=== PATIENT | female | born 1945 | race Caucasian/White ===

== ENCOUNTER 2024-11-24 14:34 | Outpatient (AMB) | payer MEDICARE, SELFPAY ==
--- NOTE | 2024-11-24 14:36 | A.OFFVIS_ITS ---
Vital Signs 11/24/24 14:39 Height 5 ft 3 in Weight 151 lb BMI 26.7 BP 124/70 Blood Pressure Location Rt brachial Position Sitting Pulse 90 Pulse Source Pulse Oximeter Pulse Oximetry (%) 99 Oxygen Delivery Method Room Air Intake Visit Reasons: [id number] Intake Note: Patient referred from [facility] for tremors Allergies No Known Allergies Allergy (Verified 11/24/24 14:43) Medication List - Last Reviewed 11/24/24 by CRYSTAL Wilde amlodipine-benazepril 10-40 mg 1 cap PO DAILY levothyroxine 75 mcg PO DAILY omeprazole 40 mg PO DAILY oxybutynin chloride ER 15 mg PO DAILY primidone mg PO rosuvastatin 10 mg PO BEDTIME HPI Comments Details: 79y/o female comes for further management of neuropathy and tremors she was seeing Dr. Alejandro who retired recently and is looking for continued care. Tremors- started about 4 years ago in her hands with action, posture. she is on primidone which is helping her. she still has trouble with activities that needs fine motor coordination. she is able to use utensils , eat and drink without problem. she feels embarrassed in social situations. she was diagnosed with neuropathy in 2005 - her main symptoms were parasthesias in toes worse at night . she also has numbness in her feet. the symptoms are manageable . she has EMG at that time. she also has balance issues due to numbness. The discomfort in her feet are better now. she has 1 fall a year. [facility] Medical History (Updated 11/24/24 @ 15:04 by Chrissie Nolasco MD) Gait abnormality Unsteady gait Tremor of both hands Primary insomnia Prediabetes Peripheral neuropathy Osteoporosis Osteoarthritis of back Insomnia Hypothyroidism Hyperlipidemia HTN (hypertension) GERD (gastroesophageal reflux disease) Essential tremor Colon polyp Allergic rhinitis Surgical History Hx of cholecystectomy Hx of appendectomy H/O tubal ligation Family History Mother FH: heart attack Father FH: heart attack Brother Afib HTN (hypertension) Social History Alcohol intake: former Patient Tobacco Use Status: Former Tobacco user Physical Exam Vital Signs: Last Vital Signs Pulse 90 11/24/24 14:39 Pulse Ox 99 11/24/24 14:39 Oxygen Delivery Method Room Air 11/24/24 14:39 BMI result Body Mass Index 26.7 Const General: cooperative, healthy appearing, comfortable and no acute distress Nutritional Appearance: average body habitus and well nourished Orientation/consciousness: patient oriented x3 Eyes Pupils: Equal, round and reactive pupils present Neuro Other: very mild postural tremors in hands General: patient oriented x3, moves all extremities and no focal motor deficits Cranial nerves: Yes Facial sensation intact/muscles of mastication intact, Yes Equal, round and reactive pupils present, Yes Bilaterally intact EOM present, Yes Nystagmus not present, Yes Normal facial strength present, Yes Midline tongue present, Yes Symmetric palate elevation present and Yes Ability to bilaterally elevate shoulders present Cognition (Neuro): normal cognition Gait exam (Neuro): Antalgic gait present Motor exam (neuro): 5/5 motor strength present throughout and Normal motor muscle tone present throughout Deep tendon reflexes (DTR's): Right triceps reflex intensity grade: 2+, Left triceps reflex intensity grade: 2+, Rt Biceps (C5, C6): 2+, Left biceps reflex intensity grade: 2+, Right brachioradialis reflex intensity grade: 2+, Left brachioradialis reflex intensity grade: 2+, Right patellar reflex intensity grade: 3+ and Left patellar reflex intensity grade: 3+ Coordination: [id number] test normal Assessment & Plan Assessment & Plan (1) Peripheral neuropathy: Code(s): G62.9 - Polyneuropathy, unspecified Category: Medical Qualifiers: Peripheral neuropathy type: polyneuropathy, unspecified Qualified Code(s): G62.9 - Polyneuropathy, unspecified (2) Tremor of both hands: Code(s): R25.1 - Tremor, unspecified Category: Medical (3) Gait abnormality: Code(s): R26.9 - Unspecified abnormalities of gait and mobility Category: Medical Plan Declines repeat EMG continue duloxetine 60mg bid change primidone 250mg 1/2 tab bid PT for gait Orders: Orders PT Evaluation and Treatment Today R26.9 - Unspecified abnormalities of gait and mobility Medications: New primidone 125 mg (1/2 x 250 mg) PO BID 30 tabs 6RF duloxetine 60 mg PO BID 60 caps 6RF Coding Level of Care Code New Pt Level 4 (86295) Complex EM visit Add On G2211 Diagnoses Peripheral polyneuropathy G62.9 Peripheral neuropathy type: polyneuropathy, unspecified Tremor of both hands R25.1 Gait abnormality R26.9
[2024-11-24 14:39] VITALS: BP 124/70; PULSE 90; O2SAT 99; BMI 26.7
--- OUTSIDE RECORDS SUMMARY | 2024-11-24 17:12 | XMS_ITS | Clinical Summary ---
Author Organization [facility] ity Address [address] [place] [address] Care Team Providers Care Chute Builder Name Role Phone Unavailable Primary Care Provider Unavailabl e Social History Tobacco Use Types Packs/Day Years Used Date Smoking Tobacco: Never Assessed Comments Unknown Sex and Gender Information Value Date Recorded Sex Assigned at Not on file Legal Sex Female 9:05 PM EST Gender Identity Not on file Sexual Orientation Not on file Plan of Treatment Health Maintenance Due Date Last Done Comments DTaP,Tdap,and Td Vaccines (1 - Tdap) 1964 Pneumococcal Vaccine: 50+ Ye ars (1 of 1 - PCV) 1995 Zoster Vaccines (1 of 2) 1995 RSV Immunization Adult Patie nts (1 - 1-dose 75+ series) 2020 COVID-19 Vaccine ( - 2023-2 5 season) 2024 Influenza Vaccine (Season Ended) 2025 HIB Vaccines Aged Out No longer eligi ble based on patient's age to complete this topic HPV Vaccines Aged Out No longer eligi ble based on patient's age to complete this topic Hepatitis A Vaccines Aged Out No long er eligible based on patient's age to complete this topic Hepatitis B Vaccines Aged Out No long er eligible based on patient's age to complete this topic IPV Vaccines Aged Out No longer eligi ble based on patient's age to complete this topic MMR Vaccines Aged Out No longer eligi ble based on patient's age to complete this topic Meningococcal ACWY Vaccine Aged Out N o longer eligible based on patient's age to complete this topic Meningococcal B Vaccine Aged Out No l onger eligible based on patient's age to complete this topic RSV Immunization Patients Un feliciano 20 months Aged Out No longer eligible b ased on patient's age to complete this topic Varicella Vaccines Aged Out No longer eligible based on patient's age to complete this topic
== END 2024-11-24 15:09 | disposition home or self-care (01) ==
LOC: HO.HSMS 14:35
PROVIDERS: PCP Nurse Practitioner Family; Visit Provider Psychiatry & Neurology Neurology
DX: G62.9 Polyneuropathy, unspecified (principal); R25.1 Tremor, unspecified; R26.9 Unspecified abnormalities of gait and mobility
CPT/HCPCS: 99204; G2211

== ENCOUNTER → 2024-11-24 14:34 | Outpatient (BNVA) | payer MEDICARE, SELFPAY | PROVIDERS: PCP Nurse Practitioner Family; Visit Provider Psychiatry & Neurology Neurology | DX: G62.9 Polyneuropathy, unspecified (principal); R25.1 Tremor, unspecified; R26.9 Unspecified abnormalities of gait and mobility | CPT/HCPCS: 99202 ==

== ENCOUNTER 2025-03-20 14:08 | Outpatient (AMB) | payer MEDICARE, SELFPAY ==
--- NOTE | 2025-03-20 14:12 | MHC.OFFVIS ---
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 History from initial visit-she was seeing Dr. Alejandro who retired recently and is looking for continued care. Tremors- started about 4 years ago in her hands with action, posture. she is on primidone which is helping her. she still has trouble with activities that needs fine motor coordination. she is able to use utensils , eat and drink without problem. she feels embarrassed in social situations. she was diagnosed with neuropathy in 2005 - her main symptoms were parasthesias in toes worse at night . she also has numbness in her feet. the symptoms are manageable . she has EMG at that time. she also has balance issues due to numbness. The discomfort in her feet are better now. she has 1 fall a year. [facility] Medical History (Updated 11/24/24 @ 15:04 by Chrissie Nolasco MD) Gait abnormality Unsteady gait Tremor of both hands Primary insomnia Prediabetes Peripheral neuropathy Osteoporosis Osteoarthritis of back Insomnia Hypothyroidism Hyperlipidemia HTN (hypertension) GERD (gastroesophageal reflux disease) Essential tremor Colon polyp Allergic rhinitis Surgical History Hx of cholecystectomy Hx of appendectomy H/O tubal ligation Family History Mother FH: heart attack Father FH: heart attack Brother Afib HTN (hypertension) Social History Alcohol intake: former Patient Tobacco Use Status: Former Tobacco user Physical Exam Vital Signs: Last Vital Signs Pulse 106 H 03/20/25 14:15 BP 110/76 03/20/25 14:15 Pulse Ox 97 03/20/25 14:15 Oxygen Delivery Method Room Air 03/20/25 14:15 BMI result Body Mass Index 25.9 Const General: cooperative, healthy appearing, comfortable and no acute distress Nutritional Appearance: average body habitus and well nourished Orientation/consciousness: patient oriented x3 Eyes Pupils: Equal, round and reactive pupils present Neuro Other: No tremors Gait- mild off balance General: patient oriented x3, moves all extremities and no focal motor deficits Cranial nerves: Yes Facial sensation intact/muscles of mastication intact, Yes Equal, round and reactive pupils present, Yes Bilaterally intact EOM present, Yes Nystagmus not present, Yes Normal facial strength present, Yes Midline tongue present, Yes Symmetric palate elevation present and Yes Ability to bilaterally elevate shoulders present Cognition (Neuro): normal cognition Motor exam (neuro): 5/5 motor strength present throughout and Normal motor muscle tone present throughout Coordination: [id number] test normal Assessment & Plan Assessment & Plan (1) Peripheral neuropathy: Code(s): G62.9 - Polyneuropathy, unspecified Category: Medical Qualifiers: Peripheral neuropathy type: polyneuropathy, unspecified Qualified Code(s): G62.9 - Polyneuropathy, unspecified (2) Tremor of both hands: Code(s): R25.1 - Tremor, unspecified Category: Medical (3) Gait abnormality: Code(s): R26.9 - Unspecified abnormalities of gait and mobility Category: Medical Plan Declines repeat EMG continue duloxetine 60mg bid change primidone 250mg 1/2 tab bid PT for gait - helped - suggested to continue exercise. Coding Level of Care Code Est Pt Level 4 (62075) Diagnoses Peripheral polyneuropathy G62.9 Peripheral neuropathy type: polyneuropathy, unspecified Tremor of both hands R25.1 Gait abnormality R26.9
[2025-03-20 14:15] VITALS: BP 110/76; PULSE 106; O2SAT 97; BMI 25.9
--- OUTSIDE RECORDS SUMMARY | 2025-03-20 14:56 | XMS_ITS | Patient Health Record ---
Author Organization [facility] Address [address] [place] [address] Care Team Providers Care Horticultural Farm Manager Name Role Phone Dev Huber MD Primary Care Provider Robert Cortes Unavailable [phone] Reason For Referral No Information Medications Medication SIG (Take, Route, Frequency, Duration) Notes Start Date End Date Status Co Q-10 300 MG 1 capsule with a kamini l Orally Once a day 03/23/2014 Active Levothyroxine Sodium 88 MCG Oral; Duration: 90 Active Lyrica 100 MG Oral; Duration: 90 Active NexIUM 40 MG Oral; Duration: 90 Active Simvastatin 10 MG Oral; Duration: 90 Active amLODIPine Besy-Benazepril HCl 5-10 MG Oral; Duration: 90 Active Aspirin 81 MG 1 tablet Orally Once a day 03/23/2014 Active Centrum Silver Orally 03/23/2014 Acti ve Social History Tobacco use other than smoking: Question Answer Notes Are you an other tobacco user? No Problems Problem Type SNOMED Code ICD Code Onset Dates Problem Status W/U Status Risk Notes Problem Neuralgia - Neuritis (729.2) Active confirmed Problem Pain in limb (17454433) Pain in Limb (729.5) Active confirmed Plan Of Treatment No Information Insurance Providers Payer Name Payer Address Payer Phone Subscriber Number Group Number Insured Name Patient Relationship to Insured Coverage Start Date Coverage End Date [facility] [address] [place] [address] [id number] Bong Riddle Spouse - patient is the spouse of the insured Medical (General) History Medical History History ICD Code Cataracts Chicken pox Gall bladder problems-out Hypertension Measles Mumps Neuropathy Thyroid disorder Surgical History Surgery Date(Month/Year) appendectomy 1955 gall bladder 09/16/12 cataract surgery 09/08/12, 12/01/12
--- OUTSIDE RECORDS SUMMARY | 2025-03-20 14:56 | XMS_ITS | Clinical Summary ---
Author Organization [facility] ity Address [address] [place] [address] Care Team Providers Care Marina Manager Name Role Phone Unavailable Primary Care Provider [...] - 1-dose 75+ series) 2020 COVID-19 Vaccine (1 - 2023-2 5 season) 2024 Depression Screening 08/03/2024 Influenza Vaccine (#1) 2025 HIB Vaccines Aged Out No longer [...]
== END 2025-03-20 14:35 | disposition home or self-care (01) ==
LOC: HO.HSMS 14:10
PROVIDERS: PCP Nurse Practitioner Family; Visit Provider Psychiatry & Neurology Neurology
DX: G62.9 Polyneuropathy, unspecified (principal); R25.1 Tremor, unspecified; R26.9 Unspecified abnormalities of gait and mobility
CPT/HCPCS: 99214

== ENCOUNTER → 2025-03-20 14:08 | Outpatient (BNVA) | payer MEDICARE, SELFPAY | PROVIDERS: PCP Nurse Practitioner Family; Visit Provider Psychiatry & Neurology Neurology | DX: G62.9 Polyneuropathy, unspecified (principal); R25.1 Tremor, unspecified; R26.9 Unspecified abnormalities of gait and mobility | CPT/HCPCS: 99212 ==